=== PATIENT | male | born 1960 | race Two or more races ===

== ENCOUNTER 2016-12-11 21:20 | Emergency (ER) | payer MEDICAID ==
[~2016-12-11] VITALS: Ht 167.6 cm; Wt 63.5 kg
--- NOTE | 2016-12-11 21:20 | NUR ---
Patient brought in self c/o right shoulder abscess x1 week. No acute distress. Patient ambulatory with steady gait. VSS. Awaiting MD evaluation.
--- NOTE | 2016-12-11 22:24 | NUR ---
at bedside for incision and drainage.
--- NOTE | 2016-12-11 22:48 | NUR ---
Patient discharged to home in stable condition. Written and verbal after care instructions given. Patient verbalizes understanding of instruction.
[2016-12-11 22:50] VITALS: BP 149/66
== END 2016-12-11 23:20 | disposition home or self-care (01) ==
LOC: ER 21:24
DX: L02.413 Cutaneous abscess of right upper limb (principal)
CPT/HCPCS: A4606; A6402; A6407; J3490; Z7610

== ENCOUNTER 2016-12-13 20:34 | Emergency (ER) | payer MEDICAID ==
[~2016-12-13] VITALS: Ht 167.6 cm; Wt 65.8 kg
[2016-12-13 20:43] VITALS: BP 148/85
== END 2016-12-13 21:11 | disposition home or self-care (01) ==
LOC: ER 20:37
DX: L02.413 Cutaneous abscess of right upper limb (principal)
CPT/HCPCS: 10060; 99283; A4606; A6407; Z7610

== ENCOUNTER 2016-12-15 19:33 | Emergency (ER) | payer MEDICAID ==
[~2016-12-15] VITALS: Ht 167.6 cm; Wt 68.0 kg
[2016-12-15 19:53] VITALS: BP 147/83
[2016-12-15] MEDS ORDERED: CLINDAMYCIN HCL 150 MG CAPSULE PO STA (20:53)
[2016-12-15] MEDS ORDERED: CLINDAMYCIN HCL 150 MG CAPSULE PO ONE (21:10)
== END 2016-12-15 21:14 | disposition home or self-care (01) ==
LOC: ER 20:07
DX: L02.414 Cutaneous abscess of left upper limb (principal)
CPT/HCPCS: 10060; 99283; A4606; A6407; J7030; Z7610

== ENCOUNTER 2016-12-18 00:59 | Emergency (ER) | payer MEDICAID ==
--- NOTE | 2016-12-18 01:39 | NUR ---
PT WAS ADVISED HE WILL HAVE TOP WAIT AND STATES HE WILL COME BACK LATER TO BE SEEN
[2016-12-18] MEDS ORDERED: DICYCLOMINE HCL 10 MG CAPSULE PO ONE (03:00)
[2016-12-18] MEDS ORDERED: MAG HYDROX/AL HYDROX/SIMETH 30 ML UDC PO ONE (03:00)
[2016-12-18] MEDS ORDERED: LIDOCAINE VISCOUS 2% UD 15 ML UDC MM ONE (03:00)
== END 2016-12-18 01:41 | disposition left against medical advice (07) ==
LOC: ER 00:59
DX: Z53.21 Procedure and treatment not carried out due to patient leaving prior to being seen by health care provider (principal)

== ENCOUNTER 2016-12-18 21:47 | Emergency (ER) | payer MEDICAID ==
[~2016-12-18] VITALS: Ht 172.7 cm; Wt 65.8 kg
[2016-12-18 23:10] VITALS: BP 153/95
== END 2016-12-18 23:15 | disposition left against medical advice (07) ==
LOC: ER 21:52
DX: Z53.21 Procedure and treatment not carried out due to patient leaving prior to being seen by health care provider (principal)
CPT/HCPCS: A4606; Z7610